=== PATIENT | female | born 1945 | race Caucasian/White ===

== ENCOUNTER → 2016-08-14 | Outpatient (CLI) | payer OTHER ==
[~2016-08-14] MED LIST: ACTONEL PO; ASPIRIN PO; CITRACAL200 MG PO; FOSAMAX PO
--- NOTE | ~2016-08-14 | MY11 ---
[facility] A Service of [facility] RADIOLOGY TEXT RESULTS PATIENT: HARRIS COFFMAN LOCATION: [facility] #: [id number] : 43 UNIT #: [id number] AGE: [address]: Kanwal Allison APRN SEX: F ORDER DR: [id number] [facility] [address] [place], [place] [address] [id number] O MR#: [id number] Acc #: [id number] NAME: HARRIS COFFMAN : 1945 SEX: F STUDY DATE/TIME: 08/14/2016 10:50 UNIT: [facility] ROOM: STUDY DESCRIPTION: MY Mammogram Screening Dig Varghese Attending Physician: Kanwal Allison A.P.R.N. Referring Physician: Kanwal Allison A.P.R.N. Ordering Physician: Kanwal Allison A.P.R.N. Primary Care Physician: Kanwal Allison A.P.R.N. MEDICAL IMAGING REPORT This report is preliminary unless electronic signature is present EXAM Digital screening mammogram 08/14/2016. HISTORY A 71-year-old woman positive family history, aunt. Annual screening. COMPARISON STUDIES Mammograms date to 05/27/2006 with most recent 08/12/2015. FINDINGS Digital imaging of each breast was completed utilizing screening protocol. Review includes FDA-approved CAD device. Breast parenchyma remains somewhat dense with residual fibroglandular opacities in each breast. Mild dominance left breast is stable. There are occasional benign calcifications with vascular calcification noted. I see no interval occurring suspicious microcalcifications and no architectural dual distortion. IMPRESSION Stable benign mammogram. Annual screening recommended. BIRADS II Patients over the age of 40 are entered into a reminder system with target due date for the next mammogram. A result letter will also be sent to the patient. BIRADS: 2 Benign Finding Dictated by... Vince Patel M.D. [facility] A Service of [facility] RADIOLOGY TEXT RESULTS PATIENT: HARRIS COFFMAN LOCATION: [facility] #: [id number] : 43 UNIT #: [id number] AGE: [address]: Kanwal Allison APRN SEX: F ORDER DR: THIS IS AN ELECTRONICALLY VERIFIED REPORT Vince Patel M.D. at 08/14/2016 3:31 PM [place] TD: 08/14/2016 14:08 JOB #: [id number] MEDICAL IMAGING REPORT Page 1 of 1 COPY
== END | disposition home or self-care (01) ==
LOC: CWCC 10:08
DX: Z12.31 Encounter for screening mammogram for malignant neoplasm of breast (principal); Z80.3 Family history of malignant neoplasm of breast
CPT/HCPCS: G0202